=== PATIENT | female | born 1965 | race Caucasian/White ===

== ENCOUNTER 2021-01-05 18:04 | Emergency (ER) | payer OTHER ==
[~2021-01-05 18:04] MED LIST: NAPROXEN375 MG PO; ZOFRAN4 MG PO
== END 2021-01-05 21:15 | disposition home or self-care (01) ==
LOC: ER1 18:04
DX: R51.9 Headache, unspecified (principal); I10 Essential (primary) hypertension; E78.5 Hyperlipidemia, unspecified; Z90.89 Acquired absence of other organs; F17.200 Nicotine dependence, unspecified, uncomplicated; Z88.6 Allergy status to analgesic agent; Z88.8 Allergy status to other drugs, medicaments and biological substances
CPT/HCPCS: 93005; 96374; 96375; 99283; J1885; J2405; J2765